=== PATIENT | female | born 1960 | race Caucasian/White ===

== ENCOUNTER 2021-12-08 10:42 | Outpatient (CLI) | payer BC, SELFPAY ==
[2021-12-08 11:28] LABS: Hematocrit 40.8 % (33.0-51.0); Mean Corpuscular HGB Conc 34 gm/dL (32-36); Mean Corpuscular Hemoglobin 31 pg (26-34); Mean Corpuscular Volume 92 fL (80-100); Platelet Count* 260 K/uL (140-440); Red Blood Count 4.46 m/uL (4.00-5.20); White Blood Count* 10.07 K/uL (4.50-11.00)
[2021-12-08 11:31] LABS: Slide Review Reflex No
[2021-12-08 11:34] LABS: Hemoglobin A1C* 5.3 % (0-5.6)
[2021-12-08 22:03] LABS: Albumin* 4.3 g/dL (3.3-5.0); Chloride* 101 mmol/L (96-114)
[2021-12-08 22:04] LABS: Potassium* 4.3 mmol/L (3.6-5.1); Sodium* 137 mmol/L (135-149)
[2021-12-08 22:06] LABS: Aspartate Amino Transferase* 31 U/L (12-35); Bilirubin Total* 0.7 mg/dL (0.1-1.5); Blood Urea Nitrogen* 17 mg/dL (7-30); Carbon Dioxide* 26 mmol/L (20-32); Cholesterol* 149 mg/dL (90-199); Creatinine* 0.7 mg/dL (0.5-1.5); Estimated Glomerular Filt Rate 98 ml/min; Total Protein* 6.7 g/dL (6.0-8.3)
[2021-12-08 22:07] LABS: Alanine Aminotransferase* 26 U/L (4-35); Alkaline Phosphatase* 113 U/L (40-150); Calcium* 11.6 mg/dL (8.4-10.6); Glucose* 98 mg/dL (60-115); HDL Cholesterol* 41 mg/dL (>=50); LDL Cholesterol Calculated 70 mg/dL (<100); Triglycerides* 189 mg/dL (40-149)
[2021-12-08 22:36] LABS: TSH With Reflex to FT4* 0.778 uIU/mL (0.270-4.200)
== END 2021-12-08 10:43 | disposition home or self-care (01) ==
PROVIDERS: PCP Physician Assistant Medical; Visit Provider Physician Assistant Medical
DX: E11.9 Type 2 diabetes mellitus without complications (principal); E78.00 Pure hypercholesterolemia, unspecified; I10 Essential (primary) hypertension; E66.9 Obesity, unspecified; F32.9 Major depressive disorder, single episode, unspecified
CPT/HCPCS: 80053; 80061; 83036; 84443; 85027

== ENCOUNTER 2023-01-29 09:12 | Outpatient (CLI) | payer BC, SELFPAY | END 2023-01-29 09:13 | disposition home or self-care (01) | LOC: NFLDREF 02-01 13:19 | PROVIDERS: PCP Physician Assistant Medical; Referring Provider Physician Assistant Medical; Visit Provider Physician Assistant Medical | DX: E11.9 Type 2 diabetes mellitus without complications (principal); E78.00 Pure hypercholesterolemia, unspecified; I10 Essential (primary) hypertension; F41.9 Anxiety disorder, unspecified; F32.A Depression, unspecified; N32.81 Overactive bladder; E78.2 Mixed hyperlipidemia; E66.9 Obesity, unspecified | CPT/HCPCS: 80053; 80061; 82043; 82570; 84443 ==

== ENCOUNTER 2023-07-23 16:18 | Outpatient (CLI) | payer BC, SELFPAY ==
--- NOTE | 2023-07-23 17:00 | MM_ITS ---
Patient: ZAHRA GARBER Facility:?[facility] Patient ID:?[id number] Site Patient ID:?[id number]. Site :?[id number] Study:?XRay-Breast Bilateral 3D screening mammogram w/cad-07/23/2023 5:00:07 PM Ordering Physician:ZULEIKA Final Report: BILATERAL SCREENING MAMMOGRAM WITH COMPUTER-AIDED DETECTION AND TOMOSYNTHESIS TECHNIQUE: CC and MLO views were obtained. These mammographic images have been obtained using full-field digital technique. These mammographic images were interpreted with the benefit of computer-aided detection. Breast tomosynthesis was used in this interpretation. COMPARISON FILM: 04/13/21, 11/27/19, 09/17/18. FINDINGS: The breasts are almost entirely fatty. IMPRESSION: There is no radiographic evidence for malignancy. ASSESSMENT: BI-RADS Category 1: Negative RECOMMENDATION: Routine screening mammogram in 1 year. A lay language report of this examination will be provided to the patient. EARL FALL M.D. Diagnostic Radiologist [email or web address] ALLAN/xavier D& Transcribed: 1:[address]/Dictated by: Earl Fall MD @ 07/30/2023 11:34:00 AM Signed by:?Earl Fall MD @07/30/2023 2:04:54 PM (Electronic Signature)
== END 2023-07-23 16:19 | disposition home or self-care (01) ==
LOC: MAMMO 16:19
PROVIDERS: PCP Physician Assistant Medical; Visit Provider Physician Assistant Medical
DX: Z12.31 Encounter for screening mammogram for malignant neoplasm of breast (principal)
CPT/HCPCS: 77063; 77067

== ENCOUNTER 2024-04-07 11:41 | Outpatient (CLI) | payer BC, SELFPAY | END 2024-04-07 11:42 | disposition home or self-care (01) | LOC: NFLDREF 04-08 00:37 | PROVIDERS: PCP Physician Assistant Medical; Referring Provider Physician Assistant Medical; Visit Provider Physician Assistant Medical | DX: E78.2 Mixed hyperlipidemia (principal); E11.9 Type 2 diabetes mellitus without complications; I10 Essential (primary) hypertension; E55.9 Vitamin D deficiency, unspecified; Z79.85 Long-term (current) use of injectable non-insulin antidiabetic drugs; Z13.29 Encounter for screening for other suspected endocrine disorder | CPT/HCPCS: 80053; 80061; 82043; 82306; 82570; 84443 ==

== ENCOUNTER 2024-04-23 12:37 | Outpatient (CLI) | payer BC, SELFPAY | END 2024-04-23 12:38 | disposition home or self-care (01) | LOC: RAD 12:39 | PROVIDERS: PCP Physician Assistant Medical; Visit Provider Physician Assistant Medical | DX: Z78.0 Asymptomatic menopausal state (principal) | CPT/HCPCS: 77080 ==